=== PATIENT | female | born 1985 | race African-American/Black ===

== ENCOUNTER → 2016-08-13 | Outpatient (CLI) | payer MEDICAID ==
[~2016-08-13] MED LIST: ALBU8.5H5 IH; MAGN400O4 PO; ONDA8TAB5 PO; OXYC-544 PO; OXYC10TA57 PO; PROM-51 PO; SULF-95 PO; [UNRECOGNIZED DRUG - CODE] PO
--- NOTE | 2016-08-13 15:45 | DI ---
Indication: ITS.REASON: R10.31 RLQ PAIN PROCEDURE: US ABDOMEN COMPLETE: Encounter: Initial Comparison: None Technique: Grayscale and color Doppler sonographic imaging of the abdomen was performed. Findings: Hepatic parenchyma is echogenic and sonographically dense without evidence for focal mass. The gallbladder is surgically absent. Both the intra and extrahepatic biliary system are of normal caliber with the common duct measuring 3 mm in dimension. Visualized portions of the head and body of the pancreas are unremarkable. Both kidneys are present without collecting system dilatation. The right measures 10.2 cm in length and left measures 11 cm. The spleen is unremarkable. The visualized portions of the aorta and IVC are unremarkable. No free fluid. Impression: Hepatic steatosis, otherwise negative exam. .
== END ==
LOC: IMA 14:25
PROVIDERS: ATTEND Nurse Practitioner Family
DX: K76.0 Fatty (change of) liver, not elsewhere classified (principal); R10.31 Right lower quadrant pain